=== PATIENT | male | born 1975 | race African-American/Black ===

== ENCOUNTER 2025-09-22 01:40 | Emergency (ER) | payer BC, SELFPAY ==
[2025-09-22 01:42] VITALS: BMI 31.7
[2025-09-22 01:48] VITALS: BP 168/105; PULSE 86; RESP 19; TEMP 36.8; O2SAT 99
--- NOTE | 2025-09-22 01:54 | XR_ITS ---
Examination: CT abdomen and pelvis without contrast. Coronal 3-D reconstructions. Sagittal 2-D reconstructions. Date and time of exam: September 22., 2024, 0211 hours INDICATIONS: Onset abdominal pain beginning 5 hours ago CTDI: vol (mGy): 10.21 DLP: (mGycm): 634 Technique: Axial images of the abdomen have been obtained, 3 mm slice thickness Intravenous contrast material has not been administered. Low dose protocols were performed. One or more of the following dose reduction techniques were used; automated exposure control, adjustment of the mA and/or KV according to patient size, use of iterative reconstruction technique. Findings: No visualized liver or splenic lesion No gallstones No pancreatic mass Nodular thickening both adrenal glands Mild renal scar formation, no renal or ureteral calculi, no hydronephrosis Aorta normal size Small bowel loops are mildly fluid-filled Normal appendix Scattered colonic diverticulosis, no diverticulitis Transverse prostate dimension 4.8 cm Moderate to advanced degenerative disc disease L5-S1 IMPRESSION: Findings consistent with small bowel ileus versus mild enteritis No bowel obstruction Normal appendix Negative for diverticulitis
--- NOTE | 2025-09-22 01:54 | PD.EDRME ---
Rapid Medical Screening Exam RME Arrival date/time: 09/22/25 01:40 This is a case of 50-year-old male who came into the emergency room due to generalized abdominal pain with nausea vomiting for 3 days worsening of the symptoms this patient decided to start consult in the emergency room Chief Complaint: Abdominal Pain Time Seen by Provider: 09/22/25 01:54 Vital signs: Vital Signs Temperature 98.3 F 09/22/25 01:48 Pulse Rate 86 09/22/25 01:48 Respiratory Rate 19 09/22/25 01:48 Blood Pressure 168/105 H 09/22/25 01:48 Pulse Oximetry (%) 99 09/22/25 01:48 Oxygen Delivery Method Room Air 09/22/25 01:48 Exam: Patient is awake alert oriented not in distress nontoxic looking well-hydrated well-nourished abdominal exam is benign nonsurgical no guarding no rebound no rigidity mild tenderness periumbilical area Clinical Impression: Abdominal pain
[2025-09-22 02:49] LABS: Basophils # (Auto) 0.0 Thou/mm3 (0.0-0.2); Basophils % (Auto) 0 % (0-2.5); Eosinophils # (Auto) 0.0 Thou/mm3 (0.0-0.5); Eosinophils % (Auto) 0 % (0-10); Hematocrit 49.0 % (41.0-53.0); Hemoglobin 17.0 g/dL (13.5-16.0); Immature Granulocytes Auto 0.08 Thou/mm3 (0.00-0.00); Lymphocytes # (Auto) 0.4 Thou/mm3 (1.0-4.8); Lymphocytes % (Auto) 3 % (10-50); Mean Corpuscular HGB Conc 34.7 g/dl (31.0-37.0); Mean Corpuscular Hemoglobin 31.5 pg (25.0-35.0); Mean Corpuscular Volume 91 fL (80-100); Monocytes # (Auto) 0.5 Thou/mm3 (0.0-0.8); Monocytes % (Auto) 4 % (0-12); Neutrophils # (Auto) 13.1 Thou/mm3 (1.8-7.7); Neutrophils % (Auto) 93 % (37-80); Nucleated Red Blood Cell # 0.00 Thou/mm3 (0.00-0.00); Nucleated Red Blood Cell % 0 /100 WBC (0); Platelet Count 219 Thou/mm3 (140-440); RDW Standard Deviation 42.0 fL (35.1-43.9); Red Blood Count 5.40 Miln/mm3 (4.50-5.90); White Blood Count 14.1 Thou/mm3 (3.8-10.6)
[2025-09-22 02:51] LABS: Alanine Aminotransferase 15 U/L (10-49); Albumin, Serum 4.7 gm/dL (3.5-5.0); Albumin/Globulin Ratio 1.5 (1.2-2.2); Alkaline Phosphatase 76 U/L (46-116); Anion Gap 8 (7-16); Aspartate Amino Transferase 21 U/L (0-34); BUN/Creatinine Ratio 10 Ratio (12-20); Bilirubin,Total 0.9 mg/dL (0.3-1.2); Blood Urea Nitrogen 9 mg/dL (9-23); Calcium 9.7 mg/dL (8.3-10.6); Calcium (Corrected) 9.7 mg/dL (8.5-10.1); Carbon Dioxide 22.9 mMol/L (20.0-31.0); Chloride 107 mMol/L (98-107); Creatinine (Component) 0.9 mg/dL (0.6-1.3); Estimated Creatinine Clearance 113.1 mL/min (>60); Globulin 3.1 gm/dL (2.3-3.5); Glucose 175 mg/dL (74-106); Lipase 23 U/L (12-53); Osmolality,Calculated 278 (275-295); Potassium 3.6 mMol/L (3.4-5.1); Sodium 138 mMol/L (136-145); Total Protein 7.8 gm/dL (5.7-8.2); eGFR > 60 See Note
--- NOTE | 2025-09-22 03:30 | PRELIM_ITS ---
CT scan of the abdomen and pelvis without intravenous contrast (axial sections with sagittal and coronal reformats) September 22, 2025 0210 hours Clinical History: abd pain Comparison: No prior study is available for comparison. Findings: There is bibasilar subsegmental atelectasis. The liver, gallbladder, pancreas, spleen, left kidney and left adrenal are unremarkable on this noncontrast study. There is a 1.2 cm right adrenal round nodular density most suggestive of a adrenal adenoma (HU 11). There is also mild nonspecific bilateral adrenal thickening. There is a small 1.5 cm right renal hemorrhagic/proteinaceous cyst. No evidence of bowel dilatation. There are nondistended but fluid-filled small bowel loops with a few air-fluid levels. The appendix is within normal limits (image [id number]). There are several small colonic diverticula without evidence of diverticulitis. There is no mesenteric or retroperitoneal adenopathy. The urinary bladder is unremarkable. The prostate is borderline enlarged. There is no free fluid or free air. The aorta and its branches demonstrate mild atheromatous calcification without evidence of aneurysm. There is advanced degenerative disc disease at L5-S1. Impression: 1. Nondistended but fluid-filled small bowel loops with a few air-fluid levels, which may be nonspecific. However, the possibility of mild enteritis cannot be excluded. Recommend clinical correlation. 2. No evidence of bowel obstruction, free air or abscess. 3. Other findings as described above. Report Electronically Signed By: Bruno Marrufo 09/22/2025 3:29:51 AM [EST]
--- NOTE | 2025-09-22 04:00 | EDNOTE_ITS ---
ED Abdominal Pain RME/HPI General Chief Complaint: Abdominal Pain Stated complaint: ABD PAIN Time seen by provider: 09/22/25 01:54 Arrival date/time: 09/22/25 01:40 RME / HPI RME / HPI narrative: 09/22/25 01:40 This is a case of 50-year-old male who came into the emergency room due to generalized abdominal pain with nausea vomiting for 3 days worsening of the symptoms this patient decided to start consult in the emergency room Patient is 50 years old without significant past medical history. He has never had any abdominal surgeries in the past. Since late last night he started to develop nausea vomiting and nonbloody diarrhea. No hematemesis. He also developed diffuse abdominal pain. Exam: Patient is awake alert oriented not in distress nontoxic looking well-hydrated well-nourished abdominal exam is benign nonsurgical no guarding no rebound no rigidity mild tenderness periumbilical area Impression: Abdominal pain Related Data Previous Rx's ?Medication ?Instructions ?Recorded dicyclomine 20 mg tablet 20 mg PO QID PRN abdominal p ain 09/22/25 #20 tabs ondansetron 4 mg disintegrating 4 mg PO Q6H PRN nausea and 09/22/25 tablet vomiting #20 tabs Allergies Allergy/AdvReac Type Severity Reaction Status Date / Time No Known Allergies Allergy Verified 09/22/25 01:41 ED Exam Narrative Physical exam: Generally patient is alert oriented x 3 mild distress secondary to pain, heart regular rate and rhythm, lungs clear to auscultation equal laterally, abdomen soft bowel sounds present nondistended diffusely tender without rebound, extremities show no edema, neurologic exam shows no ataxia with Johnnie Coma Scale 15 without focal motor deficit Course Quality Measures none Orders Category Date Time Status CT abdomen pelvis wo con Stat Exams 09/22/25 01:54 Completed CBC Stat Lab 09/22/25 02:19 Completed Comprehensive Metabolic Panel Stat Lab 09/22/25 02:19 Completed Lipase Stat Lab 09/22/25 02:19 Completed Urinalysis Stat Lab 09/22/25 04:16 Completed Dicyclomine Inj [Bentyl Inj] Med 09/22/25 04:00 Discontinued 20 mg IM X1 ONE Morphine* Inj Med 09/22/25 04:34 Discontinued 4 mg IM X1 ONE Ondansetron Odt [Zofran Odt] Med 09/22/25 04:00 Discontinued 4 mg PO X1 ONE Vital Signs Vital signs: Vital Signs Temperature 98.3 F 09/22/25 01:48 Pulse Rate 86 09/22/25 01:48 Respiratory Rate 19 09/22/25 01:48 Blood Pressure 168/105 H 09/22/25 01:48 Pulse Oximetry (%) 99 09/22/25 01:48 Oxygen Delivery Method Room Air 09/22/25 01:48 Abdominal Pain MDM MDM Narrative MDM Narrative:: I interpreted all labs. There is a 14,000 white count with left shift. LFTs and lipase are normal. Renal function is normal. CT scan done of the abdomen and pelvis without contrast showed mild enteritis. No other acute disease process. Patient received Bentyl 20 mg IM and Zofran 4 mg p.o. here in the emergency room. Patient has been somewhat hypertensive here in the emergency room with a blood pressure 180/103. I will hold off on treating at this time. Patient does have primary care follow-up. Patient also received and required a dose of morphine and 4 mg IM with benefit. Patient data External records reviewed:: Other (specify) Clinical information provided by:: none Social determinants that could affect healthcare access:: none Patient has the following chronic illnesses:: Not How is presenting disease/condition affected by chronic disease/condition?: no chronic disease Evaluation data The following diagnostics were reviewed and interpreted by me:: other (specify) Lab and/or radiology exams considered but not ordered:: None Interpretation Summary: None Medications / Prescriptions Medications or Prescriptions considered but not ordered:: None Medication administrations:: Medication Administration History Discontinued Medications Dicyclomine HCl (Dicyclomine Inj 10 Mg/Ml 2ml Vial) 20 mg IM X1 ONE Stop: 09/22/25 04:01 Last Admin: 09/22/25 04:07 Dose: 20 mg Documented By: WO Morphine Sulfate (Morphine Sulf Inj 4 Mg/Ml Vial) 4 mg IM X1 ONE Stop: 09/22/25 04:35 Last Admin: 09/22/25 04:39 Dose: 4 mg Documented By: WO Ondansetron HCl (Ondansetron Odt 4 Mg Tabrap) 4 mg PO X1 ONE; Protocol Stop: 09/22/25 04:01 Last Admin: 09/22/25 04:07 Dose: 4 mg Documented By: WO None Consultations Consultation(s) initiated? (list below): No Diagnosis Differential diagnosis abdominal pain: other Most likely diagnosis given after review of the tests above:: None Admission Indicated Admission indicated?: not indicated Admission Request Was there a request for admission?: No Disposition Plan Disposition Plan: Discharge Discharge Attestation Discharge Attestation: The patient and all family members were given an opportunity to ask questions and understood the discharge instructions. Discharge instructions specifically effects, indications for sooner follow up or return to the emergency department, and the expected course of current diagnosis. Patient condition: Stable Discharge Plan Plan Patient Disposition: HOME (Self Care) Prescriptions/Referrals Prescriptions/Med Rec: New dicyclomine 20 mg tablet 20 mg PO QID PRN (Reason: abdominal pain) Qty: 20 0RF ondansetron 4 mg tablet,disintegrating 4 mg PO Q6H PRN (Reason: nausea and vomiting) Qty: 20 0RF Problem List Clinical Impression: Enteritis Patient/Caregiver Discharge Instructions Education Materials: ED Gastroenteritis, Noninfectious Additional Instructions: Medication as prescribed. Clear liquid diet and advance as tolerated. Keep well-hydrated. Follow-up with your doctor. Return to ER as needed or if condition worsens. Print Language: Tamazight Stand Alone Forms: Beckie Award Info., Patient Portal Info Letter
[2025-09-22 04:02] VITALS: BP 185/100; PULSE 84; RESP 18; TEMP 36.9; O2SAT 98
[2025-09-22] MEDS: ONDANSETRON ODT 4 MG TABRAP PO (04:07)
[2025-09-22] MEDS: DICYCLOMINE INJ 10 MG/ML 2ML VIAL 20 MG IM (04:07)
[2025-09-22 04:22] LABS: Collection Type, Urine Clean Catch
[2025-09-22 04:33] LABS: Bilirubin,Urine Negative (Negative); Blood,Urine 1+ (Negative); Clarity,Urine Clear (Clear/Hazy); Color,Urine Lt-Yellow (Lt Yel-Yel); Glucose, Urine 4+ (Negative); Ketones,Urine Trace (Negative); Leukocyte Esterase,Urine Positive (Negative); Nitrite,Urine Negative (Negative); PH,Urine 7.0 (5.0-7.0); Protein,Urine Trace (Neg - Trace); RBC,Urine 18 /hpf (0-3); Specific Gravity,Urine 1.028 (1.001-1.035); Squamous Epithelial Cell,Urine < 1 /hpf (0-5); Urobilinogen,Urine Negative mg/dL (0.0-1.0); WBC,Urine 5 /hpf (0-5)
[2025-09-22] MEDS: MORPHINE SULF INJ 4 MG/ML VIAL IM (04:39)
[2025-09-22 05:04] VITALS: BP 176/103; PULSE 89; RESP 16; TEMP 36.8; O2SAT 96
== END 2025-09-22 05:04 | disposition home or self-care (01) ==
LOC: SERX 05:15
PROVIDERS: Nurse Practitioner Family; Emergency Provider Emergency Medicine; PCP Family Medicine
DX: K52.9 Noninfective gastroenteritis and colitis, unspecified (principal)
CPT/HCPCS: 36415; 74176; 80053; 81001; 83690; 85025; 96372; 99283; J0500; J2270; Q0162

== ENCOUNTER 2025-09-24 15:20 | Emergency (ER) | payer BC, SELFPAY ==
[2025-09-24 15:21] VITALS: BMI 31.7
--- NOTE | 2025-09-24 15:43 | EKG_ITS ---
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
--- NOTE | 2025-09-24 15:43 | XR_ITS ---
Examination: CT abdomen with intravenous contrast CT pelvis with intravenous contrast 2-D coronal reconstructions 2-D sagittal reconstructions Date and time of exam: September 24, 2025, 2014 hours COMPARISON: September 22, 2025 INDICATIONS: Lower abdominal pain beginning 2 days ago, small bowel ileus versus enteritis on CT abdomen pelvis September 22, 2025. CTDI: vol (mGy) 9 DLP: (mGycm) 565 Technique: Multiple axial sections of the abdomen and pelvis have been obtained. 64 slice high-resolution scanner used. 3 mm axial sections have been obtained, post intravenous injection 60 cc [id number] 2-D sagittal, coronal reconstructions obtained. Low dose protocols were performed. One or more of the following dose reduction techniques were used; automated exposure control, adjustment of the mA and/or KV according to patient size, use of iterative reconstruction technique. Findings: No focal liver or splenic lesion Gallstones Recommend hepatobiliary sonography follow-up to exclude gallbladder wall thickening No pancreatic mass Mild nodular thickening both adrenal glands Moderate bilateral renal scar formation, no hydronephrosis or ureteral calculi Normal appendix Multiple mildly fluid distended small bowel loops Tiny fat-containing umbilical hernia Scattered colonic diverticulosis, no diverticulitis Urinary bladder intact Transverse prostate dimension 4.8 cm Moderate to advanced degenerative disc disease L5-S1 IMPRESSION: Cholelithiasis, recommend hepatobiliary sonography to exclude cholecystitis Moderate bilateral renal parenchymal scar formation, no renal or ureteral calculi, no hydronephrosis Multiple mildly fluid distended small bowel loops, differential would include ileus, enteritis such as Crohn's disease, clinical correlation advised
[2025-09-24 15:45] VITALS: BP 152/102; PULSE 84; RESP 16; TEMP 36.8; O2SAT 96; BMI 31.7
[2025-09-24 16:31] LABS: Alanine Aminotransferase 17 U/L (10-49); Albumin, Serum 4.6 gm/dL (3.5-5.0); Albumin/Globulin Ratio 1.5 (1.2-2.2); Alkaline Phosphatase 67 U/L (46-116); Anion Gap 8 (7-16); Aspartate Amino Transferase 27 U/L (0-34); BUN/Creatinine Ratio 7 Ratio (12-20); Bilirubin,Total 0.7 mg/dL (0.3-1.2); Blood Urea Nitrogen 7 mg/dL (9-23); Calcium 9.7 mg/dL (8.3-10.6); Calcium (Corrected) 9.7 mg/dL (8.5-10.1); Carbon Dioxide 25.5 mMol/L (20.0-31.0); Chloride 104 mMol/L (98-107); Creatinine (Component) 1.0 mg/dL (0.6-1.3); Estimated Creatinine Clearance 101.8 mL/min (>60); Globulin 3.1 gm/dL (2.3-3.5); Glucose 113 mg/dL (74-106); Lipase 57 U/L (12-53); Osmolality,Calculated 272 (275-295); Potassium 3.9 mMol/L (3.4-5.1); Sodium 137 mMol/L (136-145); Total Protein 7.7 gm/dL (5.7-8.2); Troponin I < 0.020 ng/mL (0.0-0.045); eGFR > 60 See Note
[2025-09-24 16:50] LABS: Basophils # (Auto) 0.1 Thou/mm3 (0.0-0.2); Basophils % (Auto) 1 % (0-2.5); Eosinophils # (Auto) 0.0 Thou/mm3 (0.0-0.5); Eosinophils % (Auto) 0 % (0-10); Hematocrit 52.3 % (41.0-53.0); Hemoglobin 17.9 g/dL (13.5-16.0); Immature Granulocytes Auto 0.02 Thou/mm3 (0.00-0.00); Lymphocytes # (Auto) 2.2 Thou/mm3 (1.0-4.8); Lymphocytes % (Auto) 21 % (10-50); Mean Corpuscular HGB Conc 34.2 g/dl (31.0-37.0); Mean Corpuscular Hemoglobin 31.1 pg (25.0-35.0); Mean Corpuscular Volume 91 fL (80-100); Monocytes # (Auto) 0.9 Thou/mm3 (0.0-0.8); Monocytes % (Auto) 9 % (0-12); Neutrophils # (Auto) 7.2 Thou/mm3 (1.8-7.7); Neutrophils % (Auto) 69 % (37-80); Nucleated Red Blood Cell # 0.00 Thou/mm3 (0.00-0.00); Nucleated Red Blood Cell % 0 /100 WBC (0); Platelet Count 174 Thou/mm3 (140-440); RDW Standard Deviation 41.1 fL (35.1-43.9); Red Blood Count 5.76 Miln/mm3 (4.50-5.90); White Blood Count 10.4 Thou/mm3 (3.8-10.6)
--- NOTE | 2025-09-24 17:58 | PD.EDRME ---
Rapid Medical Screening Exam E Arrival date/time: 09/24/25 15:20 This is a case of 50-year-old male with no medical history came in in the emergency room due to generalized abdominal pain radiating to the epigastric area and chest with nausea vomiting patient was here 3 days ago and was treated as enteritis worsening of the symptoms this patient decided to sought consult here in the emergency room Chief Complaint: Abdominal Pain Time Seen by Provider: 09/24/25 15:32 Vital signs: Vital Signs Temperature 98.3 F 09/24/25 15:45 Pulse Rate 84 09/24/25 15:45 Respiratory Rate 16 09/24/25 15:45 Blood Pressure 152/102 H 09/24/25 15:45 Pulse Oximetry (%) 96 09/24/25 15:45 Oxygen Delivery Method Room Air 09/24/25 15:45 Exam: Mild to moderate tenderness on the epigastric area and periumbilical area no guarding no rebound no rigidity Clinical Impression: Abdominal pain
[2025-09-24] MEDS: SODIUM CHLORIDE 0.9% 1000 ML 1,000 ML 999 ML IV (19:50)
[2025-09-24] MEDS: ONDANSETRON INJ 2 MG/ML INJ 2 ML 4 MG IVP (19:51)
[2025-09-24] MEDS: MORPHINE SULF INJ 4 MG/ML VIAL IVP (19:53)
[2025-09-24 19:55] VITALS: BP 169/129; PULSE 86; RESP 14; O2SAT 99
--- NOTE | 2025-09-24 20:38 | PD.EDADULT ---
ED General RME/HPI General Chief complaint: Abdominal Pain Stated complaint: abd pain, getting worse Time Seen by Provider: 09/24/25 15:32 Arrival date/time: 09/24/25 15:20 CC: Mid abdominal pain HPI patient was seen here 2 days ago for upper abdominal pain was determined to have enteritis, was discharged home on noninfectious enteritis with medications. The patient stay try to eat some chicken negative, the pain immediately returned, and since then has remained but now it is moved down to the center abdomen. Patient also denies that he is now constipated with 3 days of no BM when he typically goes once a day. Patient denies chest pain shortness of breath difficulty breathing headache nausea vomiting or diarrhea. RME / HPI RME / HPI narrative: 09/24/25 15:20 This is a case of 50-year-old male with no medical history came in in the emergency room due to generalized abdominal pain radiating to the epigastric area and chest with nausea vomiting patient was here 3 days ago and was treated as enteritis worsening of the symptoms this patient decided to sought consult here in the emergency room Exam: Mild to moderate tenderness on the epigastric area and periumbilical area no guarding no rebound no rigidity Impression: Abdominal pain Related Data Previous Rx's ?Medication ?Instructions ?Recorded dicyclomine 20 mg tablet 20 mg PO QID PRN abdominal pain 09/22/25 #20 tabs ondansetron 4 mg disintegrating 4 mg PO Q6H PRN nausea and 09/22/25 tablet vomiting #20 tabs pantoprazole 20 mg tablet,delayed 20 mg PO QDAY #30 tabs 09/24/25 release (Protonix) Allergies Allergy/AdvReac Type Severity Reaction Status Date / Time No Known Allergies Allergy Verified 09/22/25 01:41 Review of Systems Review of Systems Narrative Review of Systems: GEN: No fever, no chills, no weight loss EYES: No discharge, no visual changes, no pain HEENT: No ear pain, no congestion, no sore throat PULM: No shortness of breath, no cough, no congestion CV: No chest pain, no dyspnea on exertion, no palpitations GI: No nausea, no vomiting, no diarrhea, + pain, no constipation : No frequency, no urgency, no dysuria MUSC/SKEL: No joint pain, no back pain SKIN: No rash PSYCH: No hallucinations, no depression HEME/LYMPH: No easy bleeding or bruising tendencies NEURO: No weakness, no headache Past Medical History Past Medical History CARDIAC: Negative Cardiac Disorders or Congestive Heart Failure RESPIRATORY: Negative Chronic Obstructive Pulmonary Disease (COPD) or Asthma GENITOURINARY: Negative Renal Disease ENDOCRINE: Negative Diabetes Mellitus Type 1 or Diabetes Mellitus Type 2 HEMATOLOGIC: Negative Sickle Cell Disease Social History SMOKING STATUS: Current every day smoker ED Exam Narrative Physical exam: [General: Obese not in any acute distress Head normocephalic HEENT: Within acceptable limits Neck is supple nontender Chest equal chest rise nontender to palpation Respiratory: Clear to auscultation no wheezes crackles or rubs CV: Rate rhythm is regular no murmurs rubs or clicks Abdomen is distended secondary to body habitus soft nontender no masses positive bowel sounds all 4 quadrants Back: No CVA tenderness no spinous process tenderness from cervical spine thoracic and lumbar spine Skin: Intact no petechiae rash induration ulceration or crepitus Extremities: Moving all extremity against resistance cap refill less than 2 seconds neurosensory intact Neuro: Awake alert oriented x3 Glascow coma 15 no focal deficits] Course Quality Measures none Orders Category Date Time Status CT Screening NOW Care 09/24/25 15:43 Active EKG (ED ONLY) *Do not use* NOW Care 09/24/25 15:[address] abdomen pelvis w con Stat Exams 09/24/25 15:43 Completed EKG (ED Only) Stat Exams 09/24/25 15:43 Draft CBC Stat Lab 09/24/25 16:00 Completed Comprehensive Metabolic Panel Stat Lab 09/24/25 16:00 Completed Lipase Stat Lab 09/24/25 16:00 Completed Troponin I Stat Lab 09/24/25 16:00 Completed Urinalysis Stat Lab 09/24/25 15:43 Ordered Morphine* Inj Med 09/24/25 15:43 Discontinued 4 mg IVP X1 ONE Ondansetron Inj [Zofran Inj] Med 09/24/25 15:43 Discontinued 4 mg IVP X1 ONE Pantoprazole Inj [Protonix Inj] Med 09/24/25 15:43 Discontinued 40 mg IVP X1 ONE Sodium Chloride 0.9% 1000 ml [Ns] 1,000 ml Med 09/24/25 15:43 Discontinued IV 999 mls/hr Vital Signs Vital signs: Vital Signs Temperature 98.3 F 09/24/25 15:45 Pulse Rate 84 09/24/25 15:45 Respiratory Rate 16 09/24/25 15:45 Blood Pressure 152/102 H 09/24/25 15:45 Pulse Oximetry (%) 96 09/24/25 15:45 Oxygen Delivery Method Room Air 09/24/25 15:45 Discharge Plan Plan Patient Disposition: HOME (Self Care) Patient condition on transfer: Stable Prescriptions/Referrals Prescriptions/Med Rec: New pantoprazole [Protonix] 20 mg tablet,delayed release (DR/EC) 20 mg PO QDAY Qty: 30 0RF No Action dicyclomine 20 mg tablet 20 mg PO QID PRN (Reason: abdominal pain) Qty: 20 0RF ondansetron 4 mg tablet,disintegrating 4 mg PO Q6H PRN (Reason: nausea and vomiting) Qty: 20 0RF Referrals: No Primary/Family,Physician [Primary Care Provider] - In 1 week Jese Arellano MD [Physician, Family Practice] - In 1 week Problem List Clinical Impression: Enteritis Patient/Caregiver Discharge Instructions Education Materials: ED Diet, [place] (Adult), ED Gastroenteritis, Noninfectious Additional Instructions: Add the medicine I prescribed tonight to the other medicines were scribed to you 2 days ago make sure you stick to a bland diet that means no greasy spicy fatty foods no processed foods. Follow-up with your primary care doctor. Print Language: Tajik Stand Alone Forms: Beckie Award Info., Patient Portal Info Letter, Work/School Release PA/FIELD REIMBURSEMENT MANAGER Supervising Physician PA/FIELD REIMBURSEMENT MANAGER Supervising Physician: Francisco Lakhani ENP [facility] Clinical Information Provided by: patient Medical Records reviewed [facility] Meds/Rx considered, not ordered None Labs/Rad/Tests considered, not ordered None Chronic Illness/Social Conditions which may negatively complicate care or outcome(s)-explain: None or not applicable Explain: Seen here 2 days ago for enteritis. EKG Interpretation EKG #1: EKG Interpretation: EKG performed at 1550 shows a ventricular rate of 111 MT interval 155 QRS of 93 QTc of 394 sinus tachycardia. Labs Labs: interpreted by ks Lab(s) Interpretation(s): CBC shows no acute leukocytosis the patient is hemoconcentrated with a hemoglobin of 17.9 no thrombocytopenia CMP shows no significant electrolyte imbalances renal impairment transaminitis or T. bili elevation Troponin is negative Lipase is 57 Imaging Imaging interpretation: interpreted by me Imaging Interpretation(s): CT of the abdomen shows bowel loops filled with fluid suggestive of enteritis. This is consistent with the CT from 2 days ago. Medication Administration(s) Medication Administration History Discontinued Medications Sodium Chloride (Ns) 1,000 mls @ 999 mls/hr IV .Q1H1M ONE Stop: 09/24/25 16:43 Last Admin: 09/24/25 19:50 Dose: 999 mls/hr Documented By: DT Morphine Sulfate (Morphine Sulf Inj 4 Mg/Ml Vial) 4 mg IVP X1 ONE Stop: 09/24/25 15:44 Last Admin: 09/24/25 19:53 Dose: 4 mg Documented By: DT Ondansetron HCl (Ondansetron Inj 2 Mg/Ml Inj 2 Ml) 4 mg IVP X1 ONE; Protocol Stop: 09/24/25 15:44 Last Admin: 09/24/25 19:51 Dose: 4 mg Documented By: DT Pantoprazole Sodium (Pantoprazole Inj 40 Mg Vial) 40 mg IVP X1 ONE Stop: 09/24/25 15:44 Last Admin: 09/24/25 19:52 Dose: 40 mg Documented By: DT Diagnosis Differential Diagnosis ED Complaint MDM: Enteritis cholecystitis pancreatitis
[2025-09-24 21:06] VITALS: BP 156/85; PULSE 75; RESP 14; TEMP 37; O2SAT 99
== END 2025-09-24 21:06 | disposition home or self-care (01) ==
PROVIDERS: Nurse Practitioner Family; Emergency Provider Emergency Medicine
DX: K52.9 Noninfective gastroenteritis and colitis, unspecified (principal); I49.1 Atrial premature depolarization
CPT/HCPCS: 36415; 74177; 80053; 81001; 83690; 84484; 85025; 93005; 96361; 96374; 96375; 99284; A4649; J2270; J2405; J2470; J7030; Q9967